=== PATIENT | female | born 1950 | race Two or more races ===

== ENCOUNTER 2025-01-15 08:19 | Outpatient (CLI) | payer OTHER | END 2025-01-15 08:23 | disposition home or self-care (01) | LOC: SONOGRAMA 08:19 | PROVIDERS: ATTEND Pathology Anatomic Pathology & Clinical Pathology | DX: D34 Benign neoplasm of thyroid gland (principal); D44.0 Neoplasm of uncertain behavior of thyroid gland; E04.2 Nontoxic multinodular goiter ==